=== PATIENT | male | born 1960 | race Caucasian/White ===

== ENCOUNTER 2020-01-25 18:59 | Emergency (ER) | payer MEDICAID ==
[~2020-01-25] VITALS: Ht 170.2 cm; Wt 83.9 kg
[2020-01-25 19:28] LABS: ABSOLUTE BASOPHILS 0.1 thou/uL (0.0-0.2); ABSOLUTE EOSINOPHILS 0.3 thou/uL (0.0-0.7); ABSOLUTE LYMPHOCYTES 1.2 thou/uL (0.8-5.3); ABSOLUTE MONOCYTES 0.5 thou/uL (0.0-1.2); ABSOLUTE NEUTROPHILS 5.3 thou/uL (1.6-8.1); HEMATOCRIT 37.5 % (42.0-52.0); HEMOGLOBIN 12.8 gm/dL (14.0-18.0); LYMPHOCYTES 15.6 %; MCH 31.5 pg (26.0-34.0); MCHC 34.2 g/dL (28.0-37.0); MCV 92.3 fL (80.0-100.0); MONOCYTES 7.2 %; MPV 8.5 fl. (7.2-11.1); NUCLEATED RBCS 0 /100WBC; PLATELET COUNT* 239 thou/uL (150-400); POLYS 72.2 %; RBC 4.06 mil/uL (4.50-6.00); RDW-CV 13.8 % (10.5-14.5); WBC 7.4 thou/uL (4.0-11.0)
[2020-01-25 19:34] LABS: CALCIUM 7.8 mg/dL (8.5-10.1); CREATININE 4.6 mg/dL (0.6-1.3); POTASSIUM 3.9 mmol/L (3.5-5.1)
[2020-01-25 19:37] LABS: URINE BILIRUBIN 2+ (Negative); URINE BLOOD 2+ (Negative); URINE CLARITY CLEAR; URINE COLOR YELLOW; URINE GLUCOSE-RANDOM 2+ (Negative); URINE KETONES NEGATIVE (Negative); URINE LEUKOCYTES-REFLEX NEGATIVE (Negative); URINE NITRITE-REFLEX NEGATIVE (Negative); URINE PROTEIN 3+ (Negative); URINE SPECIFIC GRAVITY >= 1.030 (1.005-1.030); URINE UROBILINOGEN 0.2 E.U./dl (0.2-1.0)
[2020-01-25 19:38] LABS: ALBUMIN 3.4 g/dL (3.4-5.0); TOTAL BILIRUBIN 0.4 mg/dL (<0.1-1.0); TOTAL PROTEIN 7.6 g/dL (6.4-8.2)
[2020-01-25] MEDS ORDERED: PROZAC20 M1 (19:38)
[2020-01-25 19:39] LABS: ICTOTEST (BILI CONFIRMATORY) Positive (Negative)
[2020-01-25] MEDS ORDERED: LISINOPRIL2.5 MG (19:39)
[2020-01-25 19:45] LABS: AMP/METHAMP Negative (Negative); BARBITURATES Negative (Negative); BENZODIAZEPINES Negative (Negative); COCAINE Negative (Negative); METHADONE Negative (Negative); OPIATES Negative (Negative); PCP Negative (Negative); THC Negative (Negative)
[2020-01-25 19:47] LABS: ACETAMINOPHEN < 2 ug/mL (10-30); ALCOHOL < 10 mg/dL (<10); SALICYLATE < 2.8 mg/dL (2.8-20.0)
[2020-01-25 19:48] LABS: BACTERIA-REFLEX 1-9 Few /HPF (None Seen); CASTS None Seen /LPF (None Seen); CRYSTALS None Seen /LPF (None Seen); SQUAMOUS 0-3 Few /LPF (0-3); URINE RBC 0-2 Rare /HPF (0-2); URINE WBC-REFLEX 0-5 Rare /HPF (0-5)
[2020-01-26] MEDS ORDERED: ZESTRIL5 MG PO (02:15)
[2020-01-26] MEDS ORDERED: ZOLOFT50 M1 PO (02:15)
[2020-01-26] MEDS ORDERED: PROZAC20 MG PO (02:16)
[2020-01-26 02:43] VITALS: BP 138/90
--- NOTE | 2020-01-27 12:34 | EKG ---
[place] [address] ELECTROCARDIOGRAM REPORT Name: EVETTE BROWN Room: [facility]#: [id number] Admission: 01/25/20 Attend Phys: Discharge: 01/26/20 Date of : 64 Date of Service: 01/25/202133 Report #: [id number] THIS REPORT FOR: //name// [facility] ED Test Date: 2020-01-25 Test Time: 21:34:10 Pat Name: EVETTE BROWN Department: Room: Gender: Co Founder And Chairman: CCD : 1960 Requested By: Dot Figueredo Order Number: [id number] MD: Blayne Ortega Measurements Intervals [place] Rate: 86 P: 38 HI: 178 QRS: -35 QRSD: 114 T: 111 QT: 405 QTc: 485 Interpretive Statements Sinus rhythm Probable left atrial enlargement LVH with IVCD and secondary repol abnrm Inferior infarct, old Anterior ST elevation, probably due to LVH No previous ECG available for comparison Electronically Signed On 01-27-2020 12:34:04 CDT by Blayne Ortega [email or web address] <ELECTRONICALLY SIGNED> By: Blayne Ortega MD, FACC 01/27/20 1234 [id number] [id number] Blayne Ortega MD, [facility] /EPI
== END 2020-01-26 02:44 | disposition short-term general hospital (02) ==
LOC: M.ERS 18:59
PROVIDERS: Emergency Medicine
DX: N18.6 End stage renal disease (principal); R45.851 Suicidal ideations; Z20.828 Contact with and (suspected) exposure to other viral communicable diseases; Z88.2 Allergy status to sulfonamides